=== PATIENT | female | born 1980 | race Hispanic/Latino ===

== ENCOUNTER 2017-06-01 15:59 | Emergency (ER) | payer SELFPAY ==
[2017-06-01 16:57] LABS: #Eosinphils 0.1 thou/uL (0.0-0.7); #Lymphocytes 1.8 thou/uL (1.20-3.40); #Monocytes 0.4 thou/uL (0.11-0.59); #Neutrophils 2.1 thou/uL (1.40-6.50); %Basophils 0.8 % (0.0-1.0); %Eosinophils 1.9 % (0.0-10.0); %Lymphocytes 40.9 % (21.0-51.0); %Monocytes 9.8 % (0.0-10.0); %Neutrophils 46.5 % (42.0-75.0); Hemoglobin 13.6 g/dL (12.0-16.0); Mean Corpuscular HGB CONC 33.5 g/dL (32.0-36.0); Mean Corpuscular Hemoglobin 29.9 pg (27.0-31.0); Mean Corpuscular Volume 89.2 fl (81.0-99.0); Platelet Count 287 thou/uL (130-400); Red Blood Cell (RBC) Count 4.55 mill/uL (4.20-5.40); White Blood Cell (WBC) Count 4.4 thou/uL (4.8-10.8)
[2017-06-01 17:19] LABS: ALT (SGPT) 25 U/L (8-55); AST (SGOT) 25 U/L (5-34); Albumin 4.4 g/dL (3.5-5.0); Alkaline Phosphatase 76 U/L (40-150); Anion Gap 11 mmol/L (10-20); BUN (Urea Nitrogen) 8 mg/dL (7.0-18.7); Bilirubin, Total 0.3 mg/dL (0.2-1.2); Calc. Creatinine Clearance 0 mL/min (70-130); Calcium 9.3 mg/dL (7.8-10.44); Carbon Dioxide 26 mmol/L (22-29); Chloride 105 mmol/L (98-107); Estimated GFR-MDRD 82; Globulin 3.3 g/dL (2.4-3.5); Glucose 79 mg/dL (70-105); Lipase 28 U/L (8-78); Potassium 3.3 mmol/L (3.5-5.1); Protein, Total 7.7 g/dL (6.0-8.3); Sodium 139 mmol/L (136-145)
[2017-06-01 18:01] LABS: Bilirubin Negative (Negative); Blood, Urine Negative (Negative); Clarity CLEAR (Clear); Glucose, Urine (Dipstick) Negative (Negative); Leukocyte Negative (Negative); Nitrite Negative (Negative); Protein, Urine (Dipstick) Negative (Neg-Trace); Specific Gravity, Urine 1.008 (1.002-1.036); Urobilinogen 0.2 mg/dL (0.2-1.0)
[2017-06-01 18:03] LABS: Pregnancy Test - Urine (BHCG) Negative (Negative); Pregu Control Background? CLEAR/WHITE (CLR/WHITE); Pregu Control Bar Appear? YES (CONTROL BAR); Specific Gravity 1.008 (1.002-1.036)
[2017-06-01] MEDS ORDERED: Ibuprofen 800 MG TAB ONE (19:17)
--- NOTE | 2017-06-01 21:09 | ULT ---
PELVIC ULTRASOUND: 06/01/17 HISTORY: Pelvic pain, left greater than right. COMPARISON: None. TECHNIQUE: Transabdominal and endovaginal imaging of the pelvis is performed. Ovaries are interrogated with lopez scale, color flow, doppler imaging with spectral waveform analysis. FINDINGS: The uterus is identified. No myometrial masses. The uterus measures 4.2 x 5.2 x 11.1 cm. The endometr ium has a normal echotexture measuring approximately 0.9 cm. No free fluid. Right ovary has a normal echotexture measuring 2.8 x 2.1 x 3.3 cm. In the ovary there is an anechoic focus measuring 1.9 x 1.7 x 1.0 cm compatible with a dominant folli lisy. Left ovary measures 2.8 x 2.1 x 3.1 cm. OVARIAN DOPPLER: Vascular flow to both ovaries. IMPRESSION: Unremarkable pelvic ultrasound. Dominant follicle in the left ovary is noted. Followup ultrasound in 12 weeks to ensure resolution. POS: [facility]
== END 2017-06-01 20:46 | disposition home or self-care (01) ==
LOC: ERS 15:59
DX: R10.2 Pelvic and perineal pain (principal)
CPT/HCPCS: 36415; 76856; 80053; 81003; 81025; 83690; 85025; 93976

== ENCOUNTER 2017-07-15 09:38 | Outpatient (CLI) | payer OTHER ==
[2017-07-15] MEDS ORDERED: ISOVUE-370 76%-LOCM 1 ML ONE (16:33)
== END 2017-07-15 09:39 | disposition home or self-care (01) ==
LOC: BICCT 09:38
PROVIDERS: ATTEND Family Medicine
DX: K52.9 Noninfective gastroenteritis and colitis, unspecified (principal); K57.30 Diverticulosis of large intestine without perforation or abscess without bleeding
CPT/HCPCS: 74177

== ENCOUNTER 2017-09-05 15:37 | Outpatient (CLI) | payer OTHER | END 2017-09-05 15:38 | disposition home or self-care (01) | LOC: BICULT 15:37 | PROVIDERS: ATTEND Family Medicine | DX: R10.2 Pelvic and perineal pain (principal); N83.9 Noninflammatory disorder of ovary, fallopian tube and broad ligament, unspecified | CPT/HCPCS: 76856 ==

== ENCOUNTER 2017-10-06 06:27 | Day surgery (SDC) | payer OTHER ==
[2017-10-05 11:42] VITALS: BMI 29.2
[2017-10-06] MEDS ORDERED: Lidocaine 1% w/Epinephrine 1:100K 30 ML VIAL ONE (06:48)
[2017-10-06] MEDS ORDERED: CEFAZOLIN/Water 2 GM/20 ML SYRINGE ONE (07:14)
[2017-10-06 07:28] LABS: Hemoglobin 13.6 g/dL (12.0-16.0); Mean Corpuscular HGB CONC 33.8 g/dL (32.0-36.0); Mean Corpuscular Hemoglobin 29.2 pg (27.0-31.0); Mean Corpuscular Volume 86.4 fL (78.0-98.0); Platelet Count 273 thou/uL (130-400); RBC Distribution Width 12.2 % (11.5-14.5); Red Blood Cell (RBC) Count 4.66 mill/uL (4.20-5.40); White Blood Cell (WBC) Count 6.1 thou/uL (4.8-10.8)
[2017-10-06] MEDS ORDERED: Fentanyl 100 MCG/2 ML VIAL ONE ×2 (07:47→08:57)
--- NOTE | 2017-10-06 10:54 | OP ---
DATE OF PROCEDURE: 10/06/2017 PREOPERATIVE DIAGNOSES: 1. Right carpal tunnel syndrome. 2. Right cubital tunnel syndrome. POSTOPERATIVE DIAGNOSES: 1. Right carpal tunnel syndrome. 2. Right cubital tunnel syndrome. PROCEDURE PERFORMED: 1. Right cubital tunnel release, open. 2. Right carpal tunnel release, open. 3. Long arm splint. STAFF: Rafy Isaacs M.D. ANESTHESIA: Beck. The patient received a LMA. ESTIMATED BLOOD LOSS: 20 mL. TOURNIQUET TIME: 39 minutes at 300 mmHg. ANTIBIOTICS: Ancef 2 grams. COMPLICATIONS: None. HISTORY OF PRESENT ILLNESS: Ms. Ortega is a 37-year-old female who presented to me. The patient had nerve conduction studies which showed that she had cubital tunnel and carpal tunnel syndrome. I dis cussed with patient given the nerves were given her issues, I would proceed with an open carpal tunne l and cubital tunnel procedure. I discussed the risks and benefits of surgery to include pain, scar, bleeding, infection, damage to vital structures, decreased range of motion or strength, continued nu mbness and tingling, need for further surgeries, loss of life or limb. The patient understood these risks and benefits and elected to proceed. PROCEDURE IN DETAIL: Timeout was performed designating the patient's right upper extremity as the op erative site based on sight, consents, and markings. After completion of timeout, the patient's righ t upper extremity was prepped and draped in sterile fashion. Tourniquet was brought up and left up f or 39 minutes. I made an incision of the medial epicondyle and olecranon down through skin, blunt di ssection to the triceps. There seemed to be a muscle plane. The epitrochlearis muscle that was cros sing over from the triceps over to the patient's medial epicondyle which might have been causing some construction across the ulnar nerve. I split that muscle belly, I released the nerve proximally and distally up to the septum as well as distally to the FCU, ensured that the patient had felt like she had a complete release. I ensured that the nerve was completely released, had no tethering. I made with the fascial band of the Jalloh's ligament, I tied under the undersurface of the skin to help t o create a sling, so it would not sublux. Closed subcu, then washed. After completing my release, alma paris happy with the decompression, I closed subcu with 2-0 and 4-0 nylon. The patient received 10 mL of 1% lidocaine with epinephrine at the end of the procedure. I then moved to the hand. I made an incision down just proximal to Urbano's cardinal line in line with the radial border of the fourth ra y down through skin and down through fat, down to the palmaris fascia, down through the patient's pal mateus brevis down through the patient's transverse carpal ligament, protecting the nerve throughout, ensured it was released distally to have no compression proximally. I washed the skin, I closed the patient's skin with 4-0 nylon, injected 10 mL of 1% lidocaine with epinephrine. We placed the patient in a long arm splint from the hand and wrapping around the posterior elbow whic h will remain. I let the tourniquet down after 39 minutes. The patient will remain in a splint for the next 5 days. She will remove it and begin elbow, wrist, and hand motion. I will see her back in about 10-14 days for suture removal.
== END 2017-10-06 10:10 | disposition home or self-care (01) ==
LOC: SDC 06:27
PROVIDERS: ATTEND Orthopaedic Surgery
PROC: 01N40ZZ Release Ulnar Nerve, Open Approach (ICD-10-PCS; principal; 2017-10-06)
PROC: 01N50ZZ Release Median Nerve, Open Approach (ICD-10-PCS; principal; 2017-10-06)
DX: G56.01 Carpal tunnel syndrome, right upper limb (principal); G56.21 Lesion of ulnar nerve, right upper limb; M77.11 Lateral epicondylitis, right elbow; M65.4 Radial styloid tenosynovitis [de Quervain]; M19.90 Unspecified osteoarthritis, unspecified site; Z79.84 Long term (current) use of oral hypoglycemic drugs; Z79.899 Other long term (current) drug therapy
CPT/HCPCS: 85027; 96374; J2001; J3010

== ENCOUNTER 2017-11-28 08:51 | Outpatient (CLI) | payer OTHER ==
--- NOTE | 2017-11-28 11:46 | ULT ---
ULTRASOUND PELVIC TRANSVAGINAL WITH DOPPLER: Date: 11/28/17 HISTORY: Follow-up. Pain and swelling. COMPARISON: Pelvic ultrasound dated 09/05/17. TECHNIQUE: Real-time Castillo scale with color Doppler and spectral analysis of the pelvis via transabdominal and tr ansvaginal approach. FINDINGS: Endometrial thickness is 5.0 mm. Uterus measures 10.4 x 4.6 x 5.9 cm. Right ovary measures 2.6 x 2.2 x 3.3 cm. Left ovary measures 2.3 x 1.9 x 2.5 cm. Adequate vascular flow to both ovaries. scar seen anteriorly. IMPRESSION: 1. Anterior lower uterine body scar. 2. No abnormality of the ovaries. POS: [facility]
== END 2017-11-28 08:52 | disposition home or self-care (01) ==
LOC: BICULT 08:51
PROVIDERS: ATTEND Obstetrics & Gynecology Gynecologic Oncology
DX: R19.03 Right lower quadrant abdominal swelling, mass and lump (principal)
CPT/HCPCS: 76856

== ENCOUNTER 2019-01-16 12:19 | Outpatient (CLI) | payer OTHER ==
[~2019-01-16 12:19] MED LIST: Magnevist 469MG/ML 20 ML VIAL ONE
--- NOTE | 2019-01-16 14:53 | MRI ---
MRI BRAIN WITHOUT AND WITH CONTRAST: Date: 01/16/19 COMPARISON: CT brain dated 01/08/17. HISTORY: Migraine headaches with aura. Patient is having right-sided migraines for about 3 months. TECHNIQUE: Multiplanar, multisequence MR images were obtained of the brain without and with IV contrast. FINDINGS: The brain demonstrates normal signal intensity on all obtained sequences. No restricted diffusion or abnormal enhancement are seen on this examination. There is no evidence of hydrocephalus, intracranial hemorrhage, or extra-axial fluid collection. The expected flow-voids are present. The corpus callosum, pituitary, and craniocervical junction are unre markable. The calvarium and overlying soft tissues are unremarkable. The visualized paranasal sinuses and masto id air cells are well aerated. IMPRESSION: No evidence of acute intracranial abnormality. POS: [facility]
--- NOTE | 2019-01-16 15:30 | MRI ---
Exam: MRI cervical spine with and without contrast HISTORY: Arm paresthesia, right-sided. Comparison: None TECHNIQUE: MRI thoracic spine is performed with and without intravenous gadolinium administration. Mu lti sequential, multiplanar imaging is performed FINDINGS: Appropriate T1 marrow signal intensity of the cervical vertebrae. Cervical spine vertebral body heigh t is maintained. There is no fracture. No significant STIR hyperintensity to suggest vertebral body edema or ligamentous injury Because brain parenchyma, cervicomedullary junction, cervical cord and the upper thoracic cord have a normal size and signal intensity. Postcontrast images do not demonstrate any pathologic enhancement of the visualized spinal cord. No a bnormal enhancement of the vertebral bodies. Mild fullness of the palatine tonsils, nonspecific C2-C3: No significant central canal stenosis or significant neural foraminal narrowing C3-C4: No significant central canal stenosis. Mild right foraminal narrowing due to uncovertebral hyp ertrophy. Patent left neural foramen C4-C5: No significant central canal stenosis. Neural foramina are patent C5-C6: Central disc protrusion mildly deforms the thecal sac and cervical cord. Mild central canal st enosis, without cord hyperintensity. Mild right foraminal narrowing. Left neural foramen is patent C6-C7: Broad-based disc bulge abuts the thecal sac and nearly effaces subarachnoid space. Mild flatte acacia and deformity the cervical cord, without cord hyperintensity. Mild central canal stenosis. Mild right and minimal left foraminal narrowing due to uncovertebral hypertrophy C7-T1: No significant canal stenosis or significant neural foraminal narrowing IMPRESSION: Degenerative change at C5-C6 and C6-C7 as described above. No cord signal abnormality. Transcribed Date/Time: 01/16/2019 3:34 PM
== END 2019-01-16 12:20 | disposition home or self-care (01) ==
LOC: BICMRI 12:19
PROVIDERS: ATTEND Nurse Practitioner Acute Care
DX: G43.109 Migraine with aura, not intractable, without status migrainosus (principal); R20.2 Paresthesia of skin; M47.812 Spondylosis without myelopathy or radiculopathy, cervical region
CPT/HCPCS: 70553; 72156; A9579

== ENCOUNTER 2019-03-05 12:23 | Outpatient (CLI) | payer OTHER ==
--- NOTE | 2019-03-05 14:46 | MRI ---
MRI OF THE RIGHT KNEE WITHOUT CONTRAST: INDICATION: Acute right knee pain. COMPARISON: Right knee radiograph dated January 08, 2017. FINDINGS: No large joint effusion or popliteal cyst is identified. The articular cartilage of the patellofemor al compartment is well preserved. The extensor mechanism is intact. The ACL, PCL, MCL, and lateral collateral ligament complex are intact. The medial and lateral menisci are intact. Articular cartilage of the femorotibial compartment is intact. The bone marrow signal intensity appears normal. IMPRESSION: 1. No acute abnormality demonstrated. 2. The anterior cruciate ligament, posterior cruciate ligament, medial collateral ligament, and late ral collateral ligamentous complex are intact. 3. The medial and lateral menisci are intact. 4. No full-thickness articular cartilage defect demonstrated. POS: [facility]
== END 2019-03-05 12:24 | disposition home or self-care (01) ==
LOC: BICMRI 12:23
PROVIDERS: ATTEND Orthopaedic Surgery
DX: M25.561 Pain in right knee (principal)

== ENCOUNTER 2019-08-23 19:30 | Outpatient (CLI) | payer OTHER | END 2019-08-23 19:31 | disposition home or self-care (01) | LOC: SLEEPLAB 19:30 | PROVIDERS: ATTEND Family Medicine | DX: G47.33 Obstructive sleep apnea (adult) (pediatric) (principal); G47.11 Idiopathic hypersomnia with long sleep time; R06.83 Snoring | CPT/HCPCS: 95810 ==

== ENCOUNTER 2020-05-19 14:54 | Outpatient (CLI) | payer OTHER | END 2020-05-19 14:55 | disposition home or self-care (01) | LOC: BICMRI 14:54 | PROVIDERS: ATTEND Orthopaedic Surgery | DX: M25.511 Pain in right shoulder (principal); M75.121 Complete rotator cuff tear or rupture of right shoulder, not specified as traumatic; R60.0 Localized edema; M77.9 Enthesopathy, unspecified ==

== ENCOUNTER 2020-12-16 13:40 | Outpatient (CLI) | payer OTHER | END 2020-12-16 13:41 | disposition home or self-care (01) | LOC: BICMAMMO 13:40 | PROVIDERS: ATTEND Family Medicine | DX: Z12.31 Encounter for screening mammogram for malignant neoplasm of breast (principal) | CPT/HCPCS: 77063; 77067 ==

== ENCOUNTER 2021-11-12 12:20 | Outpatient (CLI) | payer OTHER | END 2021-11-12 12:21 | disposition home or self-care (01) | LOC: BICULT 12:20 | PROVIDERS: ATTEND Family Medicine | DX: N85.2 Hypertrophy of uterus (principal) | CPT/HCPCS: 76856; 93976 ==

== ENCOUNTER 2021-12-21 08:48 | Outpatient (CLI) | payer OTHER | END 2021-12-21 08:49 | disposition home or self-care (01) | LOC: BICMAMMO 08:48 | PROVIDERS: ATTEND Family Medicine | DX: Z12.31 Encounter for screening mammogram for malignant neoplasm of breast (principal) | CPT/HCPCS: 77063; 77067 ==

== ENCOUNTER 2022-10-02 11:31 | Emergency (ER) | payer OTHER ==
[2022-10-02 12:17] LABS: #Eosinphils 0.2 thou/uL (0.0-0.7); #Monocytes 0.5 thou/uL (0.11-0.59); #Neutrophils 3.5 thou/uL (1.40-6.50); %Basophils 0.7 % (0.0-1.0); %Eosinophils 2.7 % (0.0-10.0); %Lymphocytes 29.5 % (21.0-51.0); %Monocytes 7.5 % (0.0-10.0); %Neutrophils 58.9 % (42.0-75.0); Hematocrit 39.2 % (36.0-47.0); Hemoglobin 13.5 g/dL (12.0-16.0); Mean Corpuscular HGB CONC 34.4 g/dL (32.0-36.0); Mean Corpuscular Hemoglobin 29.9 pg (27.0-31.0); Mean Corpuscular Volume 86.7 fl (78.0-98.0); Mean Platelet Volume 9.4 fL (7.4-10.4); Platelet Count 316 10x3/uL (130-400); RBC Distribution Width 12.2 % (11.5-14.5); Red Blood Cell (RBC) Count 4.52 mill/uL (4.20-5.40)
[2022-10-02 12:40] LABS: SARS-CoV-2 NAA Rapid Test Not Detected (NotDetected)
[2022-10-02 12:41] LABS: ALT (SGPT) 43 U/L (8-55); AST (SGOT) 38 U/L (5-34); Albumin 4.2 g/dL (3.5-5.0); Alkaline Phosphatase 64 U/L (40-110); Anion Gap 11 mmol/L (10-20); BUN (Urea Nitrogen) 6 mg/dL (7.0-18.7); Bilirubin, Total 0.3 mg/dL (0.2-1.2); Calc. Creatinine Clearance 0 mL/min (70-130); Calcium 9.3 mg/dL (7.8-10.44); Carbon Dioxide 23 mmol/L (22-29); Chloride 106 mmol/L (98-107); Estimated GFR 98; Globulin 3.4 g/dL (2.4-3.5); Glucose 90 mg/dL (70-105); Potassium 3.6 mmol/L (3.5-5.1); Protein, Total 7.6 g/dL (6.0-8.3); Sodium 136 mmol/L (136-145)
[2022-10-02 12:45] LABS: Troponin I Less than 0.010 ng/mL (< 0.028)
== END 2022-10-02 13:45 | disposition home or self-care (01) ==
LOC: ERS 11:31
DX: J30.9 Allergic rhinitis, unspecified (principal); E11.9 Type 2 diabetes mellitus without complications; K21.9 Gastro-esophageal reflux disease without esophagitis
CPT/HCPCS: 36415; 71045; 80053; 83880; 84484; 84702; 85025; 85379; 93005

== ENCOUNTER 2023-02-24 12:55 | Outpatient (CLI) | payer OTHER | END 2023-02-24 12:56 | disposition home or self-care (01) | LOC: BICMAMMO 12:55 | PROVIDERS: ATTEND Family Medicine | DX: Z12.31 Encounter for screening mammogram for malignant neoplasm of breast (principal) | CPT/HCPCS: 77063; 77067 ==

== ENCOUNTER 2023-07-13 14:28 | Emergency (ER) | payer OTHER ==
[2023-07-13] MEDS ORDERED: Ketorolac Tromethamine 30 MG (1 mL) VIAL ONE (15:18)
[2023-07-13] MEDS ORDERED: Orphenadrine Citrate 60 MG/2 ML VIAL ONE (15:18)
== END 2023-07-13 17:00 | disposition home or self-care (01) ==
LOC: ERS 14:28
DX: S80.02XA Contusion of left knee, initial encounter (principal); M79.10 Myalgia, unspecified site; M46.96 Unspecified inflammatory spondylopathy, lumbar region; M25.78 Osteophyte, vertebrae; E11.9 Type 2 diabetes mellitus without complications; V89.2XXA Person injured in unspecified motor-vehicle accident, traffic, initial encounter
CPT/HCPCS: 72100; 96372; J1885; J2360